=== PATIENT | female | born 1980 | race Caucasian/White ===

== ENCOUNTER → 2018-01-19 | Outpatient (CLI) | payer BC ==
[2006-02-04 07:30] VITALS: TEMP 97.7
[~2018-01-19] MED LIST: BENTYL 20MG TAB20 MG PO; NO HOME MEDICATIONS; ZYRTEC 10MG PO
== END ==
LOC: COL.CARD 01-17 12:00
DX: R00.2 Palpitations (principal); Z53.8 Procedure and treatment not carried out for other reasons